=== PATIENT | female | born 2000 | race Caucasian/White ===

== ENCOUNTER 2021-12-13 14:45 | Emergency (ER) | payer OTHER ==
[2021-12-13] MEDS ORDERED: KETOROLAC 15 MG/ML 1 ML VIAL IVP STA (16:23)
[2021-12-13] MEDS ORDERED: KETOROLAC 15 MG/ML 1 ML VIAL IM STA (16:48)
--- NOTE | 2021-12-13 17:37 | ED ---
Lower Extremity Injury HPI - General Chief Complaint: Extremity Injury, Lower Stated Complaint: Swolen Knees Time Seen by Provider: 12/13/21 15:35 Source: patient Mode of arrival: ambulatory Limitations: no limitations - History of Present Illness Initial Comments: Patient is a 21-year-old female presents the emergency room accompanied by her mother with complaints of bilateral knee pain. She reports that approximately 8 months ago she squatted down and developed excruciating pain in her left knee and was unable to stand back up requiring assistance. Since that time she has had impaired range of motion in her left knee with chronic pain and swelling. She states that she followed up with her primary care provider who checks in x-ray and advised no fractures or dislocation and recommended an MRI. She was not referred to an orthopedist. Unfortunately she has not been able to complete the MRI or follow up with her primary care provider and she recently moved to the area from [place]. She states that over the last few weeks she has had an increase in pain in her right knee as well without any swelling but reports some range of motion motion impairment secondary to pain. She denies any regular high impact activities. She denies any significant other past medical history and is not taking any medications on a regular basis. She has been utilizing Motrin [id number] for pain with minimal response along with an [id number] left knee brace. - Related Data Home Medications Medication Instructions Recorded Confirmed guaiFENesin [Mucinex] 600 mg PO Q12H PRN 12/13/21 12/13/21 Previous Rx's Medication Instructions Recorded Ketorolac [Toradol] 10 mg PO Q8H 5 Days #15 tab 12/13/21 Allergies Allergy/AdvReac Type Severity Reaction Status Date / Time No Known Allergies Allergy Verified 12/13/21 16:36 Review of Systems ROS Statement: Those systems with pertinent positive or pertinent negative responses have been documented in the HPI. ROS Other: All systems not noted in ROS Statement are negative. Past Medical History Past Psychological History: No Psychological Hx Reported Smoking Status: Former smoker Past Alcohol Use History: None Reported Past Drug Use History: None Reported General Exam Limitations: no limitations General appearance: alert, in no apparent distress Head exam: Present: atraumatic, normocephalic, normal inspection Eye exam: Present: normal appearance, PERRL, EOMI. Absent: scleral icterus, conjunctival injection, periorbital swelling ENT exam: Present: normal exam, mucous membranes moist Neck exam: Present: normal inspection Respiratory exam: Absent: respiratory distress, accessory muscle use Extremities exam: Absent: calf tenderness Left Knee exam: Present: tenderness, swelling, effusion. Absent: full ROM, crepitus, full knee extension Neurovascular tendon exam: Present: no vascular compromise Gait: observed and limited by pain Right Knee exam: Present: full ROM, tenderness, full knee extension. Absent: swelling, erythema, effusion Back exam: Present: normal inspection Neurological exam: Present: alert, oriented X3, CN II-XII intact Psychiatric exam: Present: normal affect, normal mood Skin exam: Present: warm, dry, intact, normal color. Absent: rash Course Vital Signs 12/13/21 12/13/21 12/13/21 15:29 16:36 18:21 Temperature 98.2 F Pulse Rate 129 H 85 66 Respiratory 18 16 16 Rate Blood Pressure 130/78 128/84 109/73 O2 Sat by Pulse 99 99 99 Oximetry 12/13/21 20:17 Temperature 97.7 F Pulse Rate 80 Respiratory 22 Rate Blood Pressure 120/79 O2 Sat by Pulse 97 Oximetry Medical Decision Making - Medical Decision Making Patient is a 21-year-old female with previous x-ray of her left knee which began hurting suddenly after squatting with effusion and inability to fully extend knee. Recently she developed pain in her right knee without any popping locking or effusion. Previous x-ray negative for acute findings. Will defer repeat x-ray of knee and check computed tomography scan of left knee. Suspect right knee strain secondary to overuse from left knee no collect will check x-ray to evaluate any other osseous processes. Will give IM Toradol for pain. Computed tomography scan reveals no acute fractures abnormal joint spaces or derangement. Still with high probability for post anterior or medial crucial ligament tear to left knee. No significant effusion noted to left to right knee during computed tomography scan of left knee; x-ray of right knee canceled by radiology. Results discussed with patient and her mother. Will immobilize left knee and refer to local primary care provider along with local orthopedists as she is recently relocated to the area. Will continue on short course of Toradol to help with inflammation and swelling and control pain. Advised not to take Toradol with other NSAIDs. May weight-bear as tolerated with knee immobilizer intact. Case discussed with Dr. Jacobson. - Radiology Data Radiology results: report reviewed, image reviewed CT left knee without contrast impression there is a knee joint effusion. No fracture seen. Normal joint spaces. Patella is intact. X-ray right knee canceled by radiology as no acute abnormalities to right knee seen on computed tomography scan. Disposition Clinical Impression: Knee pain, bilateral, Knee effusion, left Disposition: HOME SELF-CARE Instructions (If sedation given, give patient instructions): Knee Pain (ED) Additional Instructions: Maintain left knee immobilizer and to utilize right knee brace as needed. Please follow-up with orthopedist for further evaluation and treatment of left knee pain as there is high concern for a meniscus tear. Avoid high impact activities. Continue Toradol around the clock the next 5 days to reduce pain and swelling. Avoid other NSAIDs while taking Toradol. May use Tylenol [id number] as needed for pain when taking Toradol. Please return to the Emergency Department if symptoms worsen or any other concerns. Prescriptions: Ketorolac [Toradol] 10 mg PO Q8H 5 Days #15 tab Is patient prescribed a controlled substance at d/c from ED?: No Referrals: Morales Tobias MD [REFERRING] - 1-2 days Tushar Payton MD [Medical Doctor] - 1-2 days Time of Disposition: 19:46
--- NOTE | 2021-12-13 18:17 | CT ---
EXAMINATION TYPE: CT knee LT wo con DATE OF EXAM: 12/13/2021 COMPARISON: None HISTORY: Swelling LT knee, limited ROM. Pt stated all she did was squat. CT DLP: 175.2 mGycm Automated exposure control for dose reduction was used. Images obtained from the mid femur to the mid tibia with no contrast. Distal femur is intact. Proximal tibia and fibula appear intact. Knee joint spaces are fairly normal. There is a mild knee joint effusion. I see no focal bone destruction. No fracture line seen. Patella is intact. IMPRESSION: There is a knee joint effusion. No fracture seen. Normal joint spaces.
[2021-12-13 20:17] VITALS: BP 120/79; PULSE 80; RESP 22; TEMP 97.7
== END 2021-12-13 20:17 | disposition home or self-care (01) ==
LOC: EC 14:45
DX: M25.462 Effusion, left knee (principal); M25.562 Pain in left knee; M25.561 Pain in right knee; Z87.891 Personal history of nicotine dependence
CPT/HCPCS: 73700; 99283; 96372; J1885

== ENCOUNTER 2024-08-17 03:58 | Emergency (ER) | payer BC, OTHER ==
[2024-08-17 04:05] VITALS: TEMP 98
--- NOTE | 2024-08-17 04:26 | ED ---
General Adult HPI - General Chief complaint: Headache Stated complaint: Arm and facial tingling, slurred speech Time Seen by Provider: 08/17/24 04:01 Source: patient, RN notes reviewed, old records reviewed Mode of arrival: ambulatory Limitations: no limitations - History of Present Illness Initial comments: 23-year-old female who presents for evaluation of tingling to the right side of her face, right arm and right leg. Symptoms began 1 hour prior to arrival. They are somewhat improved but persistent at the time my evaluation. There was no reported weakness. Patient does have a history of migraine headache although this does not typically have any sort of focal neurologic complaint associated with it. She took a migraine medication prior to arrival. She denies significant headache at the time my evaluation. No vomiting. Patient is oth erwise well and symptoms began abruptly. - Related Data Home Medications Medication Instructions Recorded Confirmed guaiFENesin [Mucinex] 600 mg PO Q12H PRN 12/13/21 12/13/21 Previous Rx's Medication Instructions Recorded Ketorolac [Toradol] 10 mg PO Q8H 5 Days #15 tab 12/13/21 Allergies Allergy/AdvReac Type Severity Reaction Status Date / Time No Known Allergies Allergy Verified 08/17/24 04:05 Review of Systems ROS Statement: Those systems with pertinent positive or pertinent negative responses have been documented in the HPI. ROS Other: All systems not noted in ROS Statement are negative. Past Medical History Past Medical History: No Reported History History of Any Multi-Drug Resistant Organisms: None Reported Past Surgical History: No Surgical Hx Reported Past Psychological History: No Psychological Hx Reported Smoking Status: Former smoker Past Alcohol Use History: None Reported Past Drug Use History: None Reported General Exam Limitations: no limitations General appearance: alert, in no apparent distress Head exam: Present: atraumatic, normocephalic Eye exam: Present: normal appearance, PERRL ENT exam: Present: normal exam Neck exam: Present: normal inspection Respiratory exam: Present: normal lung sounds bilaterally. Absent: respiratory distress, wheezes Cardiovascular Exam: Present: regular rate, normal rhythm GI/Abdominal exam: Present: soft. Absent: distended, tenderness, guarding Extremities exam: Present: normal inspection, normal capillary refill Neurological exam: Present: alert, oriented X3, CN II-XII intact (No facial droop, normal facial symmetry, clear speech). Absent: motor sensory deficit (Patient reports subjective numbness tingling but is able to feel throughout the bilateral upper lower extremities and face.) Psychiatric exam: Present: normal affect, normal mood Skin exam: Present: warm, dry, intact Course Vital Signs 08/17/24 08/17/24 04:02 04:28 Temperature 98 F Pulse Rate 92 89 Respiratory 18 Rate Blood Pressure 150/100 146/96 O2 Sat by Pulse 100 100 Oximetry - Reevaluation(s) Reevaluation #1: 08/17/24 06:18 Developed worsening headache with nausea vomiting Medical Decision Making - Medical Decision Making Was pt. sent in by a medical professional or institution (, [facility], [employer], urgent care, hospital, or retirement...) When possible be specific @ -No Did you speak to anyone other than the patient for history (EMS, parent, family, police, friend...)? What history was obtained from this source @ -No Did you review nursing and triage notes (agree or disagree)? Why? @ -I reviewed and agree with nursing and triage notes Were old charts reviewed (outside hosp., previous admission, EMS record, old EKG, old radiological studies, urgent care reports/EKG's, retirement records)? Report findings @ -No old charts were reviewed Differential Headache: Migraine, tension, cluster, carbon monoxide, central venous thrombosis, pension karma temporal arteritis, acute closure glaucoma, intercranial hemorrhage, mastoiditis, sinusitis, head injury, this is not meant to be an all-inclusive list. EKG interpreted by me (3pts min.). @Sinus rhythm rate of 89, MO interval 137, QRS duration 82, QTc [address] segment elevation. X-rays interpreted by me (1pt min.). @ -None done CT interpreted by me (1pt min.). @ -CT brain without contrast negative for intracranial hemorrhage or mass effect, CT angiography negative for aneurysmal change, no acute findings U/S interpreted by me (1pt. min.). @ -None done What testing was considered but not performed or refused? (CT, X-rays, U/S, labs)? Why? @ -None What meds were considered but not given or refused? Why? @ -None Did you discuss the management of the patient with other professionals (professionals i.e. , PA, [employer], lab, RT, psych nurse, social worker palliative care, chief substation operator, teacher, environmental compliance officer, caseworker protective services)? Give summary @ -No Was smoking cessation discussed for >3mins.? @ -No Was critical care preformed (if so, how long)? @ -No Were there social determinants of health that impacted care today? How? (Roly elessness, low income, unemployed, alcoholism, drug addiction, transportation, low edu. Level, literacy, decrease access to med. care, correction, rehab)? @ -No Was there de-escalation of care discussed even if they declined (Discuss DNR or withdrawal of care, Hospice)? DNR status @ -No What co-morbidities impacted this encounter? (DM, HTN, Smoking, COPD, CAD, Cancer, CVA, ARF, Chemo, Hep., AIDS, mental health diagnosis, sleep apnea, morbid obesity)? @ -History of migraine headache. Was patient admitted / discharged? Hospital course, mention meds given and route, prescriptions, significant lab abnormalities, going to OR and other pertinent info. @ -23-year-old female with initial mild headache and right-sided paresthesia. NIH of 0. No ataxia. Patient did undergo CT imaging of the brain including CT angiography which was negative. Normal CBC, normal CMP. She develops a more significant headache while in the emergency department with associated nausea and vomiting. This is likely related to migraine headache. She is given IV fluids, Toradol, Reglan. Undiagnosed new problem with uncertain prognosis? @ -No Drug Therapy requiring intensive monitoring for toxicity (Heparin, Nitro, Insulin, Cardizem)? @ -No Were any procedures done? @ -No Diagnosis/symptom? @ -Headache Acute, or Chronic, or Acute on Chronic? @Acute Uncomplicated (without systemic symptoms) or Complicated (systemic symptoms)? @ -Default Side effects of treatment? @ -No Exacerbation, Progression, or Severe Exacerbation? @ -No Poses a threat to life or bodily function? How? (Chest pain, USA, ID, pneumonia, PE, COPD, DKA, ARF, appy, cholecystitis, CVA, Diverticulitis, Homicidal, Suicidal, threat to staff... and all critical care pts) @ -No - Lab Data Result diagrams: 08/17/24 04:24 08/17/24 04:24 Lab Results 08/17/24 08/17/24 08/17/24 Range/Units 04:24 04:24 04:24 WBC 6.0 (3.8-10.6) k/uL RBC 5.17 (3.80-5.40) m/uL Hgb 15.8 (11.4-16.0) gm/dL Hct 45.5 (34.0-46.0) % MCV 88.0 (80.0-100.0) fL MCH 30.6 (25.0-35.0) pg MCHC 34.8 (31.0-37.0) g/dL RDW 11.7 (11.5-15.5) % Plt Count 247 (150-450) k/uL MPV 7.9 Neutrophils % 52 % Lymphocytes % 31 % Monocytes % 9 % Eosinophils % 4 % Basophils % 1 % Neutrophils # 3.1 (1.3-7.7) k/uL Lymphocytes # 1.8 (1.0-4.8) k/uL Monocytes # 0.5 (0-1.0) k/uL Eosinophils # 0.2 (0-0.7) k/uL Basophils # 0.0 (0-0.2) k/uL PT 10.8 (10.0-12.5) sec INR 1.0 (<1.2) APTT 24.1 (22.0-30.0) sec Sodium 137 (137-145) mmol/L Potassium 4.1 (3.5-5.1) mmol/L Chloride 99 (98-107) mmol/L Carbon Dioxide 23 (22-30) mmol/L Anion Gap 15 mmol/L BUN 13 (7-17) mg/dL Creatinine 0.59 (0.52-1.04) mg/dL Est GFR (CKD-EPI)AfAm >90 (>60 ml/min/1.73 sqM) Est GFR (CKD-EPI)NonAf >90 (>60 ml/min/1.73 sqM) Glucose 114 H (74-99) mg/dL Calcium 10.1 (8.4-10.2) mg/dL Total Bilirubin 0.8 (0.2-1.3) mg/dL AST 21 (14-36) U/L ALT 28 (4-34) U/L Alkaline Phosphatase 61 (38-126) U/L Total Protein 8.5 H (6.3-8.2) g/dL Albumin 5.1 H (3.5-5.0) g/dL Disposition Clinical Impression: Headache Disposition: HOME SELF-CARE Condition: Fair Instructions (If sedation given, give patient instructions): Acute Headache (ED) Is patient prescribed a controlled substance at d/c from ED?: No Referrals: Gus Zhao DO [Primary Care Provider] - 1-2 days
[2024-08-17] MEDS: SODIUM CHLORIDE 0.9% 1,000 ML IV STA (04:29)
[2024-08-17 04:42] LABS: Basophils % (A) 1 %; Eosinophils # (A) 0.2 k/uL (0-0.7); Eosinophils % (A) 4 %; HCT 45.5 % (34.0-46.0); HGB 15.8 gm/dL (11.4-16.0); Lymphocytes # (A) 1.8 k/uL (1.0-4.8); Lymphocytes % (A) 31 %; MCH 30.6 pg (25.0-35.0); MCHC 34.8 g/dL (31.0-37.0); Mean Platelet Volume 7.9; Monocytes # (A) 0.5 k/uL (0-1.0); Monocytes % (A) 9 %; Neutrophils # (A) 3.1 k/uL (1.3-7.7); Neutrophils % (A) 52 %; Platelet Count 247 k/uL (150-450); RBC 5.17 m/uL (3.80-5.40); RDW 11.7 % (11.5-15.5)
[2024-08-17 04:44] LABS: Partial Thromboplastin Time 24.1 sec (22.0-30.0); Prothrombin Time 10.8 sec (10.0-12.5)
[2024-08-17 04:54] LABS: ALT 28 U/L (4-34); AST 21 U/L (14-36); African American GFR (CKD) >90 (>60 ml/min/1.73 sqM); Albumin 5.1 g/dL (3.5-5.0); Alkaline Phosphatase 61 U/L (38-126); Anion Gap 15 mmol/L; Blood Urea Nitrogen 13 mg/dL (7-17); Calcium 10.1 mg/dL (8.4-10.2); Carbon Dioxide 23 mmol/L (22-30); Chloride 99 mmol/L (98-107); Glucose 114 mg/dL (74-99); Non-African American GFR(CKD) >90 (>60 ml/min/1.73 sqM); Potassium 4.1 mmol/L (3.5-5.1); Sodium 137 mmol/L (137-145); Total Bilirubin 0.8 mg/dL (0.2-1.3); Total Protein 8.5 g/dL (6.3-8.2)
--- NOTE | 2024-08-17 05:34 | CT ---
EXAM: CT Head Without Intravenous Contrast CLINICAL HISTORY: ITS.REASON CT Reason: Headache TECHNIQUE: Axial computed tomography images of the head/brain without intravenous contrast. CTDI is 48.8 mGy and DLP is 1145 mGy-cm. This CT exam was performed using one or more of the following dose reduction techniques: automated exposure control, adjustment of the mA and/or kV according to patient size, and/or use of iterative reconstruction technique. COMPARISON: No relevant prior studies available. FINDINGS: Brain: Unremarkable. No hemorrhage. No significant white matter disease. No edema. Ventricles: Unremarkable. No ventriculomegaly. Bones/joints: Unremarkable. No acute fracture. Soft tissues: Unremarkable. Sinuses: Acute on chronic left maxillary sinusitis. Mastoid air cells: Unremarkable as visualized. No mastoid effusion. IMPRESSION: 1. No acute intracranial findings. No intracranial hemorrhage. 2. Acute on chronic left maxillary sinusitis.
--- NOTE | 2024-08-17 06:01 | CT ---
EXAM: CT Angiography Head Without and With Intravenous Contrast CLINICAL HISTORY: ITS.REASON CT Reason: ANGUIANO/paresthesia TECHNIQUE: Axial computed tomographic angiography images of the head without and with intravenous contrast. CTDI is 2.4 mGy and DLP is 31.2 mGy-cm. This CT exam was performed using one or more of the following dose reduction techniques: automated exposure control, adjustment of the mA and/or kV according to patient size, and/or use of iterative reconstruction technique. MIP reconstructed images were created and reviewed. COMPARISON: No relevant prior studies available. FINDINGS: VASCULATURE: The dural venous sinuses are patent. Right internal carotid artery: No acute findings. Intracranial segment is patent with no significant stenosis. No aneurysm. Right anterior cerebral artery: Unremarkable. No occlusion or significant stenosis. No aneurysm. Right middle cerebral artery: Unremarkable. No occlusion or significant stenosis. No aneurysm. Right posterior cerebral artery: Unremarkable. No occlusion or significant stenosis. No aneurysm. Right vertebral artery: Unremarkable as visualized. Left internal carotid artery: No acute findings. Intracranial segment is patent with no significant stenosis. No aneurysm. Left anterior cerebral artery: Unremarkable. No occlusion or significant stenosis. No aneurysm. Left middle cerebral artery: Unremarkable. No occlusion or significant stenosis. No aneurysm. Left posterior cerebral artery: Unremarkable. No occlusion or significant stenosis. No aneurysm. Left vertebral artery: Hypoplastic. Basilar artery: Unremarkable. No occlusion or significant stenosis. No aneurysm. HEAD: Brain: No acute findings. No hemorrhage. No edema. Normal enhancement. Ventricles: Unremarkable. No ventriculomegaly. Bones/joints: No acute fracture. Soft tissues: Unremarkable. Sinuses: Unremarkable as visualized. No acute sinusitis. Mastoid air cells: Unremarkable as visualized. No mastoid effusion. IMPRESSION: Negative CT angiogram of the head.
[2024-08-17] MEDS: METOCLOPRAMIDE 5 MG/ML 2 ML VIAL IVP STA ×2 (06:24→08:16)
[2024-08-17] MEDS: KETOROLAC 15 MG/ML 1 ML VIAL IVP STA (06:30)
[2024-08-17] MEDS: SODIUM CHLORIDE 0.9% 500 ML 500 ML IV ONE (06:32)
[2024-08-17] MEDS: ASPIRIN 325 MG TAB PO STA (06:37)
[2024-08-17] MEDS: ONDANSETRON 4 MG ODT STARTER PACK 2 TAB BTL PO STA (09:04)
[2024-08-17 09:06] VITALS: BP 117/76; PULSE 92; RESP 18
== END 2024-08-17 09:29 | disposition home or self-care (01) ==
LOC: EC 03:58
DX: G43.909 Migraine, unspecified, not intractable, without status migrainosus (principal); Z87.891 Personal history of nicotine dependence
CPT/HCPCS: 36415; 93005; 80053; 85025; 85610; 85730; 70496; 70450; 99284; 96374; 96375; 96376; 96361 ×3; J2765; J1885; S0119; Q9967